=== PATIENT | male | born 1935 | race Caucasian/White ===

== ENCOUNTER 2020-05-16 15:45 | Inpatient (IN) | payer OTHER ==
[~2020-05-16] VITALS: Ht 185.4 cm; Wt 86.8 kg
--- NOTE | ~2020-05-16 | HC ---
[facility] [place] [address] CONSULTATION Name: TOBY LOYOLA Room #: 204-P [facility] IN M.R.#: [id number] Admission: 05/16/20 Attend Phys: Parveen Goldberg MD Discharge: Date of : 33 Report #: [id number] THIS REPORT FOR: cc: Parveen Goldberg MD, Neal A. MD Smithson, David G. MD ~ CC: Raymond Andersoncuselo Goldberg DATE OF SERVICE: 05/23/2020 HISTORY OF PRESENT ILLNESS: This patient is an 84-year-old white male who has a prior history of dementia, living in a memory group home, who was noted to have mental status changes. Did not recognize his daughter, which is a change. He had worsening shortness of breath, congestive heart failure, acute on chronic with sepsis, community-acquired pneumonia. He also had a large right pleural effusion and underwent thoracentesis on 05/17/2020 with 2200 mL fluid drained. He was noted to have a significant encephalopathy with worsening of his mental status, has been restless, trying to get out of bed, was in restraints with those being removed today at 11:00 a.m. He also has dysphagia with aspiration risk and daughter has been involved and the plan is to go ahead and let him eat with a pureed diet with nectar thickened liquids. We are seeing him in rehabilitation medicine consultation. PAST MEDICAL HISTORY: Gastric CA, coronary artery disease, status post stenting. He has had prior cardioversion. History of diabetes mellitus type 2. He does have the prior dementia. HABITS: No history of tobacco or alcohol abuse. MEDICATIONS: Please see the full medication listing. ALLERGIES: As listed CAMPHOR IODINE, PENICILLIN and PREDNISONE. SOCIAL HISTORY: Lives in a private small memory group home. There is apparently a nurse and an aid there and they served meals, family style. He had been ambulatory without gait aids. There is a closely involved daughter. REVIEW OF SYSTEMS: Did not offer any complaints of chest pain, shortness of breath or abdominal discomfort. He is very hard of hearing. He has hearing aids in. PHYSICAL EXAMINATION: GENERAL: An 84-year-old white male lying in bed. He is very hard of hearing. When I asked him how he was, he said he thought he was alright. When I asked him what place he was in, he did not respond to me. [facility] [address] [place] [address] CONSULTATION Name: TOBY LOYOLA Room #: 204-P [facility] IN ..#: [id number] Admission: 05/16/20 Attend Phys: Parveen Goldberg MD Discharge: Date of : 33 Report #: [id number] NEUROLOGIC: He was able to follow basic 1 step commands. Vitals appear to be stable. He was partially undressed and I assisted him as far as getting his hospital gown back in place. EXTREMITIES: He has functional range of motion of the upper extremities with some decreased at end range. Strength is probably a grade 4- to 3+. Lower extremities functional range of motion, strength is probably a grade 4-. ASSESSMENT: An 84-year-old white male with the following problem list: 1. Toxic metabolic encephalopathy. 2. Sepsis. 3. Congestive heart failure, acute on chronic, systolic. 4. Large right pleural effusion, status post thoracentesis. 5. Community-acquired pneumonia. 6. DNR status. 7. Prior history of dementia. 8. Aspiration with dysphagia. Plan is to let him eat a pureed diet with nectar thickened liquids. PLAN: The patient did have restraints in place, which were just removed late this morning. He needs to be off restraints for 24 hours before being considered for an acute in-hospital 5 North rehabilitation stay. He was noted to have therapy on 05/19/2020, but was too confused on 05/20/2020. We will need to have him be reevaluated by therapies and we will need to go from there. Thank you for asking us to assist in this patient's care. By: [id number] Redd Zuniga MD /nt
[~2020-05-16 15:45] MED LIST: ALLEGRA60 MG; ASPIRIN EC81 M1; CARDURA8 MG; COUMADIN 2 MG TA2 M1; DILTIAZEM ER180 M1; GLUCOPHAGE500 MG; LISINOPRIL10 MG; MECLIZINE 25 MG25 M1 PO; MUCINEX600 MG; OMEPRAZOLE20 MG; PROVENTIL HFA6.7 G1; SIMVASTATIN40 MG
[2020-05-16 15:46] VITALS: BP 110/54
[2020-05-16 16:26] LABS: CALCIUM 9.2 mg/dL (8.5-10.1); CREATININE 1.1 mg/dL (0.7-1.3); POTASSIUM 4.8 mmol/L (3.5-5.1)
[2020-05-16 16:31] LABS: ABSOLUTE NEUTROPHILS 15.4 thou/uL (1.4-8.2); BASOPHILS 0.1 % (0.0-2.0); EOSINOPHILS 0.1 % (0.0-3.0); HEMATOCRIT 23.2 % (42.0-52.0); HEMOGLOBIN 6.8 gm/dL (14.0-18.0); LYMPHOCYTES 2.4 % (24.0-44.0); MCH 21.2 pg (26.0-34.0); MCHC 29.1 g/dL (28.0-37.0); MCV 72.8 fL (80.0-100.0); MONOCYTES 4.5 % (1.0-8.0); PLATELET COUNT 255 thou/uL (150-400); POLYS 92.9 % (36.0-66.0); RBC 3.19 mil/uL (4.50-6.00); WBC 16.6 thou/uL (4.0-11.0)
[2020-05-16 16:35] LABS: TROPONIN-I 0.16 ng/mL (<0.06)
[2020-05-16 16:54] LABS: ANISOCYTOSIS 1+; HYPOCHROMASIA 1+; MICROCYTES 1+; POLYCHROMASIA OCCASIONAL
[2020-05-16 17:17] LABS: APTT 32.1 Seconds (24.5-32.8); INR 1.5; PROTIME 14.9 Seconds (9.3-11.4)
[2020-05-16 17:18] LABS: BE(vivo) 1.7 mmol/L (-2 to +3); PCO2 53.9 mmHg (35.0-45.0); PO2 88.2 mmHg (80.0-100.0); pH 7.333 (7.360-7.450)
[2020-05-16 22:01] VITALS: BP 134/74
--- NOTE | 2020-05-16 22:05 | NUR ---
REPORT CALLED FROM ER (ROGER GO). PATIENT TRANSFERED TO ICU VIA CART ON 4L NC, SALINE LOCKED, WITH BILATERAL SOFT WRIST RESTRAINTS ON. PATIENT TRANSFERED TO ICU BED, ATTACHED TO ICU MONITOR, AND ASSESSED PER ICU PROTOCOL. PT A&O x1. DAUGHTER (ADDI) CALLED AND UPDATED AND GIVEN PTS SECURITY CODE/ROOM NUMBER. DR. PERKINS PAGED TWICE AT 1894 AND [id number]. NO CALL BACK.
[2020-05-16 22:08] VITALS: BP 116/63
[2020-05-16 22:15] VITALS: BP 107/60
[2020-05-16 23:00] VITALS: BP 113/70
[2020-05-17] VITALS (38 sets, daily range): BP systolic 92–128; BP diastolic 52–82
[2020-05-17 01:13] LABS: HEMATOCRIT 21.2 % (42.0-52.0)
[2020-05-17 01:16] LABS: HEMOGLOBIN 6.2 gm/dL (14.0-18.0)
[2020-05-17 07:11] LABS: HEMOGLOBIN 7.1 gm/dL (14.0-18.0); MCH 21.9 pg (26.0-34.0); MCHC 29.5 g/dL (28.0-37.0); MCV 74.3 fL (80.0-100.0); RBC 3.23 mil/uL (4.50-6.00); WBC 14.7 thou/uL (4.0-11.0)
[2020-05-17 07:26] LABS: CALCIUM 8.7 mg/dL (8.5-10.1); CREATININE 1.1 mg/dL (0.7-1.3); POTASSIUM 4.5 mmol/L (3.5-5.1)
--- NOTE | 2020-05-17 07:38 | EKG ---
[facility] [place] [address] ELECTROCARDIOGRAM REPORT Name: TOBY LOYOLA Room #: 241-P ADM IN M.R.#: [id number] Admission: 05/16/20 Attend Phys: Parveen Goldberg MD Discharge: Date of : 33 Report #: [id number] THIS REPORT FOR: cc: Parveen Goldberg MD, Neal A. MD Santiago, Patrick MD [facility] ~ THIS REPORT FOR: //name// [facility] ED Test Date: 2020-05-16 Test Time: 16:54:31 Pat Name: TOBY LOYOLA Department: Room: 241 Gender: M Rejected Items Clerk: OBINNA : 1935 Requested By: Obed Bass Order Number: [id number] MD: Carlos Manuel Sweeney Measurements Intervals [place] Rate: 92 P: MO: QRS: 4 QRSD: 112 T: 86 QT: 374 QTc: 463 Interpretive Statements Atrial fibrillation Anteroseptal infarct, age indeterminate Compared to ECG 09/18/2011 10:28:42 Myocardial infarct finding now present Incomplete right bundle-branch block no longer present T-wave abnormality no longer present Electronically Signed On 05-17-2020 7:38:24 CDT by Carlos Manuel Sweeney [email or web address] <ELECTRONICALLY SIGNED> By: Carlos Manuel Sweeney MD, FAC 05/17/20 0738 1654 [id number] Carlos Manuel Sweeney MD, [facility] /EPI
--- NOTE | 2020-05-17 11:45 | NUR ---
chart review. cm visited with daughter kat via phone call. pt lives in memory senior living with total of 8 resident then have ob/gyn physician and nurse. dad up walking with out assist prior to hospital. lives at [facility], no o2 prior to hospital he does were depends at . he gets to go out back and work in garden if he wants. he has made friends there and will go back at dc from hospital. he might even have girlfriend. no steps he has to do. nurse passes out medication, they all eat meals together like families do. [facility], then see zhanna there per daughter jerald. will cont following as need for dc need.
[2020-05-17 12:24] LABS: HEMATOCRIT 24.6 % (42.0-52.0)
[2020-05-17 12:25] LABS: HEMOGLOBIN 7.2 gm/dL (14.0-18.0)
[2020-05-17 12:35] LABS: CLARITY SLIGHTLY CLOUDY; COLOR YELLOW; SOURCE RIGHT CHEST; TOTAL VOLUME 59 mL
[2020-05-17 12:54] LABS: BF NUCLEATED CELLS 209 /mm3; BF RBC 1043 /mm3
[2020-05-17 14:44] LABS: BF NEUTROPHILS 28 %
[2020-05-17 14:45] LABS: BF MACROPHAGE 26 %
[2020-05-17 16:49] LABS: SOURCE THORACENTESIS
--- NOTE | 2020-05-17 19:44 | NUR ---
PATIENT MOVED TO ROOM 248 AT 1200. PATIENT GOT THORACENTSIS AT 1130. 2.2L OF FLUID OFF. DPOA SEANSA DAUGHTER VISITED PATIENT. 80MG LASIX GIVEN FOR LOW URINE OUTPUT. CROWELL CATHETER REPLACED DUE TO LEAKAGE AROUND CATHETER AT 1400. PATIENT PRODUCING URINE. 2300 OUT THIS SHIFT. PROGRESSING TOWARDS PLAN OF CARE.
--- NOTE | 2020-05-17 21:29 | NUR ---
Nurse talked with Dr. Garvey in regards to patient heparin order and lower hemoglobin with having been transfused. No evidence of bleeding noted, patient had a thoracentesis today. Per physician, ok to give heparin as scheduled and ordered.
[2020-05-18] VITALS (26 sets, daily range): BP systolic 82–138; BP diastolic 48–83
[2020-05-18 03:26] LABS: URINE BILIRUBIN NEGATIVE (Negative); URINE BLOOD 3+ (Negative); URINE CLARITY SL CLOUDY; URINE COLOR YELLOW; URINE GLUCOSE-RANDOM* NEGATIVE (Negative); URINE KETONES TRACE (Negative); URINE NITRITE-REFLEX NEGATIVE (Negative); URINE PROTEIN (DIPSTICK) 1+ (Negative); URINE SPECIFIC GRAVITY >= 1.030 (1.005-1.035); URINE UROBILINOGEN 0.2 E.U./dl (0.2-1.0)
[2020-05-18 03:33] LABS: URINE LEUKOCYTES-REFLEX 1+ (Negative)
[2020-05-18 03:48] LABS: CELLULAR CASTS 0-3 Few /LPF (None Seen); CRYSTALS None Seen /LPF (None Seen); FINE GRANULAR CASTS 0-3 Few /LPF (None Seen); HYALINE CASTS 0-3 Few /LPF (None Seen); MUCUS 0-3 Light strn/LPF (None Seen); SQUAMOUS 0-3 Few /LPF (0-3); WBC CLUMPS Rare (None Seen)
[2020-05-18 06:05] LABS: HEMOGLOBIN 7.1 gm/dL (14.0-18.0); MCH 21.8 pg (26.0-34.0); MCHC 29.7 g/dL (28.0-37.0); MCV 73.3 fL (80.0-100.0); RBC 3.27 mil/uL (4.50-6.00); RDW 17.7 % (10.5-14.5); WBC 11.3 thou/uL (4.0-11.0)
--- NOTE | 2020-05-18 06:23 | NUR ---
Patient slept throughout the night. He is progressing towards plan of care as evidenced by he is less impulsive, responds more appropriately, decreasing oxygen needs, vital signs with map >65mmhg.
[2020-05-18 06:30] LABS: CALCIUM 8.2 mg/dL (8.5-10.1); CREATININE 1.1 mg/dL (0.7-1.3); POTASSIUM 3.6 mmol/L (3.5-5.1)
--- NOTE | 2020-05-18 08:54 | EKG ---
[facility] [place] [address] ELECTROCARDIOGRAM REPORT Name: TOBY LOYOLA Room #: 248-P ADM IN M.R.#: [id number] Admission: 05/16/20 Attend Phys: Parveen Goldberg MD Discharge: Date of : 33 Report #: [id number] THIS REPORT FOR: cc: Parveen Goldberg MD, Neal A. MD Lundgren,Dell Suarez MD [facility] ~ THIS REPORT FOR: //name// [facility] Test Date: 2020-05-18 Test Time: 07:01:23 Pat Name: TOBY LOYOLA Department: Room: 248 P Gender: M Analytical Tech: SIDDHARTHA : 1935 Requested By: Raymond Coles Order Number: [id number] MD: Dell Vasquez Measurements Intervals [place] Rate: 105 P: CA: QRS: 12 QRSD: 100 T: 86 QT: 348 QTc: 461 Interpretive Statements Atrial fibrillation Anteroseptal infarct, age indeterminate Baseline wander in lead(s) V4 Compared to ECG 05/16/2020 16:54:31 No significant changes Electronically Signed On 05-18-2020 8:54:07 CDT by Dell Vasquez [email or web address] <ELECTRONICALLY SIGNED> By: Dell Vasquez MD, [facility] 05/18/20 0854 0 Dell Vasquez MD, FAC /EPI
--- NOTE | 2020-05-18 12:07 | NUR ---
SPOKE WITH PATIENT'S DAUGHTER (ADDI PEDROZA) RE CODE STATUS. SHE STATED THAT PER HIS MEDICAL RECORDS, HE IS A DNR. UPDATED STATUS ON OCT. DAUGHTER AT THE BEDSIDE VISITING, UPDATED ON STATUS AND POC.
--- NOTE | 2020-05-18 16:06 | PATH ---
[facility] [address] [place] [address] PATHOLOGY RPT PROCEDURE Name: TOBY LOYOLA Room #: 248-P ADM IN M.R.#: [id number] Admission: 05/16/20 Date of : 31 Discharge: Report #: [id number] Path Case #: [id number] Note [facility] Accession Number: [id number] TESTS RESULT FLAG UNITS REF RANGE LAB Clinician Provided Cytology Information No. of containers..01 Other (Miscellaneous) Source: 01 PLEURAL FLUID DIAGNOSIS: 02 PLEURAL FLUID NEGATIVE FOR MALIGNANT EPITHELIAL CELLS. REACTIVE MESOTHELIAL CELLS ARE PRESENT. THIS INTERPRETATION INCLUDES EVALUATION OF A CELL BLOCK. MILD CHRONIC INFLAMMATION. Pathologist ICD10: 02 J18.9 Signed out by: 02 Patricia Joaquin MD, Pathologist NPI- [id number] Performed by: 01 Audrey Patton, [employer] Fabricator [employer]sembler ([facility]) Gross description: 01 20ML, CLEAR YELLOW, 1 TP 1 CB /LCS 05/17/2020 1638 Local FLAG LEGEND: L-Low Normal,H-High Normal,LL-Alert Low,HH-Alert High <-Panic Low,>-Panic High,A-Abnormal,AA-Critical Abnormal Performed at: [address] [place] [address] Keagan Paul MD, [address] [address] Patricia Joaquin MD, Specimen Comment: A courtesy copy of this report has been sent to [phone] Specimen Comment: [phone], Specimen Comment: Report sent to ,DR PERKINS / DR COLÓN Performed at: [address], [place], [place] [address] MD Keagan Paul MD Phone: [phone]
--- NOTE | 2020-05-18 17:26 | NUR ---
PT. ARRIVED ON CCU UNIT AT THIS TIME. OXYGEN TRANSFERRED AND PLACED ON NASAL CANNULA AT OUR BEDSIDE. VERY CALM, SLEEP, FLAT AFFECT. VERY [place], HAVE TO PRONOUNCE QUESTIONS TO HIM IN HIS LEFT EAR, CLOSELY. DAUGHTER REPORTED HE HAS TO HAVE IN AT LEAST ONE HEARING AID AT A TIME OR HER IS 100% DEAF BASICALLY. PLACED ON LIVERY CAR DRIVER SHWOING HE IS IN AFIB CURENTLY WITH A CONTROLLED RATE, NO ECTOPY OBSERVED. HE IS ALLOWED THICKENED LIQUIDS TONIGHT AND SPEECH EVALAUTION WILL REASSESS HIM TOMORROW IN THE MORNING FOR SWALLOWING ABILITIES OVERALL AGAIN. THEREFORE ON ACCUCHECKS Q6 HOURS STILL NOT TAKING MUCH FOOD IN YET OR CALORIES. NO SIGN'S OF AGITATION OR PULLING AT ANY OF HIS LINES AT PRESENT SO NEED FOR RESTRAINTS PRESENTLY. WILL CONTINUE TO MONITOR AND HE IS CLOSE TO NURSING STATION FOR SAFETY WELL.
[2020-05-18 19:07] LABS: BODY FLUID ALBUMIN 1.1 g/dL (Not Estab.); BODY FLUID AMYLASE 10 U/L (()); BODY FLUID GLUCOSE 206 mg/dL (()); BODY FLUID LDH 80 IU/L (()); BODY FLUID PROTEIN 1.7 g/dL (())
--- NOTE | 2020-05-18 21:12 | NUR ---
PATIENT IS CONFUSED AND IMPULSIVE. DESPITE NURSING INTERVENTIONS PATIENT HAS REMOVED MULTIPLE IV'S WELL OXYGEN MANY TIMES. ORDERS RECEIVED FOR MEDICATION WELL SOFT RESTRAINT MITTENS WHICH WERE PLACED WITHOUT INCIDENT. CALL PLACED TO DAUGHTER AND DPOA ALERTING HER TO PATIENTS TREATMENT.
--- NOTE | 2020-05-19 04:29 | NUR ---
PATIENT IS SLOWLY PROGRESSING IN HIS CARE PLAN. VITAL SIGNS STABLE WITH PATIENT HAVING NO COMPLAINTS OF PAIN OR NAUSEA. PATIENT IS ORIENTED TO SELF, CONFUSED, AND FREQUENTLY IMPULSIVE. MITTENS PROVIDED FOR PATIENT DUE TO INTERFERENCE WITH MEDICAL EQUIPMENT. BREATHING STABLE ON LOW LEVEL OXYGEN EVIDENCED BY ASSESSMENTS AND SPOT OXYGENATION CHECKS. AROUND 600 CC URINARY OUTPUT THROUGH CROWELL CATHETER. SWALLOW PRECAUTIONS FOLLOWED. CONTINUE PLAN OF CARE.
[2020-05-19 04:55] VITALS: BP 119/64
[2020-05-19 06:36] LABS: CALCIUM 7.9 mg/dL (8.5-10.1)
[2020-05-19 07:40] VITALS: BP 114/69
[2020-05-19 11:30] VITALS: BP 113/65
[2020-05-19 15:35] VITALS: BP 98/55
--- NOTE | 2020-05-19 18:03 | NUR ---
ASSUMED PATIENT CARE AT 0700. ALERT TO SELF. VERY HARD HEARING. AMBULATED IN ARAYA WAY WITH STANDBY ASSISTED. OFF RESTRAINT AT 0800. TITRATED TO RA 02 SAT 92%. ASSISTED PATIENT WITH MEALS. SLOWLY TOWARDS POC GOALS.
[2020-05-19 20:27] VITALS: BP 121/78
[2020-05-20] VITALS (7 sets, daily range): BP systolic 105–151; BP diastolic 57–93
--- NOTE | 2020-05-20 03:34 | NUR ---
assumed pt care at 1900, pt is awake, alert to self and very [place], pt is impulsive and disconnected multiple iv lines and his flores, dr blas contacted, orders received for mitted restrains and medication, order received for soft bilateral restrains as pt is able to remove mittens and pull ivs again, afib on the monitor, assessments as charted, vss, laying in bed, restrains on, will continue to monitor
[2020-05-20 08:18] LABS: HEMATOCRIT 27.6 % (42.0-52.0); HEMOGLOBIN 8.2 gm/dL (14.0-18.0); MCH 21.7 pg (26.0-34.0); MCHC 29.8 g/dL (28.0-37.0); RBC 3.78 mil/uL (4.50-6.00); RDW 18.6 % (10.5-14.5); WBC 9.8 thou/uL (4.0-11.0)
[2020-05-20 08:31] LABS: CALCIUM 8.9 mg/dL (8.5-10.1); CREATININE 0.7 mg/dL (0.7-1.3)
[2020-05-20 08:38] LABS: POTASSIUM 2.7 mmol/L (3.5-5.1)
--- NOTE | 2020-05-20 15:26 | NUR ---
Pt NPO this am due to mental status. ST did feeding trial with modified diet at lunch and dtr was present. Continuing iv lasix due to CHF. Pt in restraints due to pulling at flores and IV. Attempted to update the DON at the [facility] (memory care), Jessy Shetty [phone]. Dtr would like the pt to return directly there as it is a private small prison. Their DON will need updated and to approve his readmission. The [facility] staff report that family can transport the resident at dc or they can arrange for that. They do have [facility] coming in for other residents and he can have HH RN and therapies including ST upon his return if ordered by the attending. Message left for the DON. Pt will likely be ready for dc early next week pending his progress. Will follow.
--- NOTE | 2020-05-20 19:40 | NUR ---
PT CARE ASSUMED AT 0700. ASSESSMENT CHARTED. MEDICATION CHARTED. ST EVALUATED PATIENT SWALLOW THIS MORNING; MADE PT NPO UNTIL SECOND STUDY AT LUNCH; AFTER 2ND STUDY PT WENT BACK ON PREVIOUS DIET. PT REMAINS IN RESTRAINTS; DESPITE THE RESTRAINTS PT MANAGED TO PULL 3RD IV; NEW IV LFA. CROWELL. ACHS.
[2020-05-21 04:13] LABS: CALCIUM 8.7 mg/dL (8.5-10.1); CREATININE 0.9 mg/dL (0.7-1.3); POTASSIUM 3.4 mmol/L (3.5-5.1)
[2020-05-21 04:45] VITALS: BP 132/95; BP 146/88
--- NOTE | 2020-05-21 05:53 | NUR ---
assumed pt care at the change of shift, pt is awake, alert to self, implulsive at times, remains on restrains due to disconnecting iv and flores, remains afib on the monitor, hr upto 120s when pt is up and agitated, otherwise stable, meds given as per mar, no acute distress noted, progressing slowly towards plan of care
[2020-05-21 07:35] VITALS: BP 117/82
[2020-05-21 16:20] VITALS: BP 106/65
--- NOTE | 2020-05-21 16:38 | NUR ---
ASSESSMENT CHARTED - MEDS PER MAR - PT HAS REMIANED CONFUSED AND AGGITATED FOR A GOOD PORTION OF THE DAY - ABLE TO SCOOT DOWN IN BED AND PULL OUT IV AND TAKE OFF GOWN. IV REPLACED IN L FOREARM. INCONTINENT OF STOOL - CROWELL CATH WITH GOOD URING OUTPUT. PT ON PURREE DIET AND NECTAR THICK LIQUIDS - HAS PERIODS OF COUGHING AND THROAT CLEARING WHEN BEING FEED. ACCUCHECKS CHARTED COCERED PER SSI. DAUGHTER INTO VISIT THIS SHIFT. PT HAS REMINED RESTRAINED THROUGHOUT THE DAY.
[2020-05-21 20:10] VITALS: BP 119/51
[2020-05-22 03:05] LABS: HBsAG-EMPLOYEE EXPOSURE Negative (Negative); HCV AB-EMPLOYEE EXPOSURE <0.1 (0.0-0.9)
[2020-05-22 04:00] VITALS: BP 117/68
--- NOTE | 2020-05-22 04:41 | NUR ---
assumed pt care at the change of shift, pt is awake, alert to self, less impulsive tonight, bilateral soft restrains on due to pt disconnecting multiple ivs and flores catheter, pt able to eat 2 apple sauce and 1 puddding, insulin was given as per oct, sr on the monitor, all other meds given as per oct, 2 loose stools noted, vss, no acute distress noted, will continue to monitor
[2020-05-22 07:35] VITALS: BP 126/60
[2020-05-22 09:41] LABS: HEMATOCRIT 30.1 % (42.0-52.0); MCH 21.9 pg (26.0-34.0); MCHC 29.8 g/dL (28.0-37.0); MCV 73.3 fL (80.0-100.0); RBC 4.1 mil/uL (4.50-6.00); RDW 18.8 % (10.5-14.5); WBC 22.3 thou/uL (4.0-11.0)
[2020-05-22 09:49] LABS: CALCIUM 8.7 mg/dL (8.5-10.1); CREATININE 0.8 mg/dL (0.7-1.3)
[2020-05-22 09:52] LABS: POTASSIUM 2.9 mmol/L (3.5-5.1)
[2020-05-22 11:05] VITALS: BP 104/52
[2020-05-22 16:00] VITALS: BP 118/72
--- NOTE | 2020-05-22 17:03 | NUR ---
ASESSMENT CHARTED - MEDS PER MAR - PT WITH LOW K+ GIVEN 20 MEQ IVPB, ORAL DOSES ORDERED. ACCUCHECKS COVERED PER SSI. MATILDA PURREE DIET AND NECTAR THICK LIQUIDS - PT DOES HAVE COUGHING AND THRAOT CLEARING WITH ORAL INTAKE. SATURATION CHECKED IN ROOM AIR PT 94% O2 LEFT OFF. PT AMBULATED TO THE BATHROOM AND IS UP IN THE CHAIR AT THE PRESENT TIME. DAUGHTER AT THE BEDSIDE. PT RESTLESS AT TIMES WHEN IN BED - ATTEMPTING TO PULL AT LINES/ CROWELL - REMAINS RESTRAINED WHILE IN BED. NO CO'S AT THE PRESENT TIME.
[2020-05-22 20:33] VITALS: BP 125/69
[2020-05-23 05:19] VITALS: BP 130/71
--- NOTE | 2020-05-23 05:37 | NUR ---
ASSUME CARE 1900. PT/VITALS STABLE. NO PAIN NOTED. PT STILL CONFUSED BUT PLEASANT. NO AGITATION NOTED. ASSESSMENT CHARTED. PROGRESSING WELL WITH POC. PT IS CLINICALLY STABLE. PLAN IS TO CONTINUE TO MONITOR PT AND POSSIBLE DISCHARGE WITHIN A FEW DAYS BACK TO FACILITY. WILL CONTINUE TO FOLLOW WITH POC
[2020-05-23] MEDS ORDERED: METOPROLOL TART25 MG PO (07:28)
[2020-05-23] MEDS ORDERED: POTASSIUM CHLO20 MEQ PO (07:37)
[2020-05-23] MEDS ORDERED: CARDIZEM60 MG PO (07:37)
[2020-05-23] MEDS ORDERED: DEMADEX20 MG PO (07:37)
[2020-05-23 08:09] VITALS: BP 113/58
[2020-05-23 08:37] LABS: CALCIUM 8.9 mg/dL (8.5-10.1); CREATININE 0.9 mg/dL (0.7-1.3); POTASSIUM 3.1 mmol/L (3.5-5.1)
--- NOTE | 2020-05-23 09:56 | 2DMMODE ---
[facility] [place] [address] 2 D/M-MODE ECHOCARDIOGRAM Name: TOBY LOYOLA Room #: 204-P ADM IN M.R.#: [id number] Admission: 05/16/20 Attend Phys: Parveen Goldberg MD Discharge: Date of : 33 Report #: [id number] THIS REPORT FOR: cc: Parveen Goldberg MD, Neal A. MD Santiago, Patrick MD [facility],Parveen CASTAÑEDA ~ Sex/Age : F/72Y Height/Weight : 182.9cm/79.4kg Patient Name : JOSEFA ALMANZAR Study Date : 2020-05-17 BSA : 2.01? Requesting Name : ECHO COMPLETE Date of : 1948-01-28 Request Doctor : CARLOS MANUEL SWEENEY Department : CARD --< Approved Report > Study performed: 05/17/2020 14:15:25 EXAM: Comprehensive 2D, Doppler, and color-flow Echocardiogram Patient Location: ER Status: routine BSA: 2.01 HR: 130 bpm BP: 132/99 mmHg Rhythm: Atrial Fibrillation Indications Afib, short of breath, elevated troponin. HTN 2D Dimensions RVDd: 41.37 mm IVSd: 12.51 (7~11mm) LVOT Diam: 19.89 (18~24mm) LVDd: 41.51 mm PWd: 12.21 (7~11mm) Ascending Ao: 33.65 (22~36mm) LVDs: 29.31 (25~40mm) Aortic Root: 31.38 mm Volumes Left Atrial Volume (Systole) Single Plane 4CH: 114.45 mL Single Plane 2CH: 80.98 mL LA ESV Index: 56.00 mL/m2 [facility] [place] [address] 2 D/M-MODE ECHOCARDIOGRAM Name: TOBY LOYOLA CELESTE Room #: 204-P [facility] IN M.R.#: [id number] Admission: 05/16/20 Attend Phys: Parveen Goldberg, Discharge: Date of : 33 Report #: [id number] Aortic Valve AoV Peak Junior.: 1.07 m/s AO Peak Gr.: 4.58 mmHg LVOT Max P.68 mmHg LVOT Max V: 0.82 m/s FLORIDALMA Vmax: 2.38 cm2 Mitral Valve MV Decel. Time: 95.74 ms MV E Max Junior.: 1.39 m/s Pulmonary Valve PV Peak Junior.: 0.90 m/s PV Peak Gr.: 3.21 mmHg Tricuspid Valve TR Peak Junior.: 2.86 m/s RAP Estimate: 15.00 mmHg TR Peak Gr.: 33.00 mmHg PA Pressure: 48.00 mmHg Left Ventricle The left ventricle is normal size. There is normal LV segmental wall motion. Mild concentric left ventricular hypertrophy. Left ventricular systolic function is normal. LVEF is 55-60%. This study is not technically sufficient to allow evaluation of the LV diastolic function due to atrial fibrillation. Right Ventricle The right ventricle is normal size. The right ventricular systolic function is normal. Atria Left atrium is severely dilated. Right atrium is moderately dilated. Aortic Valve The aortic valve is normal in structure. No aortic regurgitation is present. There is no aortic valvular stenosis. Mitral Valve The mitral valve is normal in structure. Moderate mitral regurgitation. Tricuspid Valve The tricuspid valve is normal in structure. Mild tricuspid regurgitation. Estimated PAP is 45mmHg. Pulmonic Valve The pulmonary valve is normal in structure. Trace pulmonic regurgitation. [employer] [facility] [address] [address] 2 D/M-MODE ECHOCARDIOGRAM Name: TOBY LOYOLA CELESTE Room #: 204-P [facility] IN M.R.#: [id number] Admission: 05/16/20 Attend Phys: Parveen Goldberg, Discharge: Date of : 33 Report #: [id number] The aortic root is normal in size. The ascending aorta is normal in size. IVC is dilated and collapses <50% with inspiration. Pericardium There is no pericardial effusion. <Conclusion> Normal left atrial size, mild concentric hypertrophy and preserved ejection fraction of 60% No obvious segmental wall motion abnormality Study performed in Atrial fibrillation Moderate biatrial enlargement Mild tricuspid valve insufficiency Moderate pulmonary hypertension PA pressure systolic estimated at 45 mmHg Moderate and posteriorly directed mitral valve insufficiency Electronically Approved : 05/23/2020 09:26:14 By: [id number] Carlos Manuel Sweeney MD, FACC /JW
--- NOTE | 2020-05-23 11:23 | NUR ---
PT HAS NOT ATTEMPTED GRABBING AT MEDICAL DEVICES THIS SHIFT. DAUGHTER IN ROOM WITH PT. RESTRANTS REMOVED AT 1100. WILL NOTIFIY PHYSICIAN OF REMOVAL. PLAN IS FOR PT TO DC TODAY.
[2020-05-23 12:57] VITALS: BP 123/65
--- NOTE | 2020-05-23 16:14 | NUR ---
Tenative plan for dc today. Sp with Lynn at [facility] who reports she sp with dtr. Dtr reported to home he needs assistance to bathroom. This is not his baseline. Patient Ambulated with no assistive device. Patient seen by PT/OT on 05/19. SP with dtr regarding post acute care. Dtr refuses skilled care. She reports her mother transferred from [facility] to [facility] for skilled rehab and it was a terrible experience. She rec little therapy at facility and at facility. She is agreeable to 5[facility] eval. [facility] evaled and need patient to be restraint free 24 hours to be accepted.
[2020-05-23 16:50] VITALS: BP 149/117
--- NOTE | 2020-05-23 18:19 | NUR ---
ASSUMED CARE PT SHIFT CHANGE. ASSESSMENT CHARTED.MEDS GIVEN PER OCT. PT DROWSY THIS SHIFT. UNABLE TO STATE NAME, ANSWER ORIENTATION QUESTIONS. PT DID ANSWER TO SOME YES/NO QUESTIONS. UP TO TOILET X2 ASSIST. PT ATE MEALS FAIR TODAY, DID NOT WANT LUNCH. SEEN BY OT, PHYS THERAPY TO SEE TOMORROW. POSSIBLE DC TO REHAB. DAUGHTER AT BEDSIDE THROUGHOUT SHIFT. WILL CONT TO MONITOR AND FOLLOW POC. WILL PASS ON REPORT TO NOC RN.
[2020-05-23 20:00] VITALS: BP 111/56
--- NOTE | 2020-05-24 02:03 | NUR ---
ASSESSMENT: PT REMAIN ALERT AND ORIENT TIMES TWO. AT THE BEGINNING OF THE SHIFT PT WAS COOPERATIVE AND FOLLOWED SIMPLE COMMANDS FOR THE MOST PART. AT APPROXIMATELY 0100 PT BECAME COMBATIVE, NON-COMPLIANT AND CONTINUOUSLY TAKING OFF TELE MONITOR AND ID BADGES. WHEN ON MONITOR PT WAS AFIB WITH RATES CONTROLLED. THIS RN ATTEMPTED TO GIVE PT PO HALDOL FOR AGITATION IN WHICH PT SPIT THE ENTIRE SPOON FULL OF MEDICINE OUT. SECURITY WAS CALLED BECAUSE PT WAS KICKING AND WRESTLING WITH THIS RN AND THE ELECTROCARDIOGRAPH OPERATOR. AT THAT TIME PT WAS BEING IMPULSIVE AND WAS DETERMINED THAT HE WAS GOING TO GET OOB AND HEAD TOWARDS THE BR WITHOUT GB NOR ASSISTANCE. DR. PERKINS WAS NOTIFIED OF PT'S BEHAVIOR AND ORDERS WERE GIVEN TO DC TELE MONITOR AND TO GIVE HALDOL IM. SECURITY REMAINED AT THE BEDSIDE UNTIL ORDERS WERE INITIATED. PT IS NOW ASLEEP AND QUIET. VSS, AFEBRILE. SLOW PROGRESS TOWARDS DC GOALS. WILL CONTINUE TO MONITOR.
[2020-05-24 07:35] VITALS: BP 119/55
--- NOTE | 2020-05-24 14:16 | NUR ---
spoke with [facility] CONVICT GUARD, evaled and accepted to 5[facility]. plan admit in am updated Dr Goldberg and [facility].
--- NOTE | 2020-05-24 18:30 | NUR ---
ASSUMED CARE OF PT AT SHIFT CHANGE. ASSESSMENTS CHARTED. MEDS GIVEN PER OCT. PT ALERT TO SELF. VERY HARD OF HEARING. NO C/O PAIN. IMPULSIVE, DOES NOT USE THE CALL LIGHT. HAD SEVERAL BOUTS OF DIARRHEA, TREATED WITH PO MEDS. PULLED OUT IV AND FLUSHED DOWN TOILET. WALKED WITH PT AND SEVERAL TIMES WITH DAUGHTER AROUND UNIT USING WALKER. PLAN TO DC TO 5N TOMORROW. WILL CONTINUE TO MONITOR AND FOLLOW POC.
[2020-05-24 20:34] VITALS: BP 98/63
--- NOTE | 2020-05-25 04:20 | NUR ---
CARE ASSUMED AT 1900. PT CONFUSED, UNABLE TO MAKE NEEDS KNOWN. LESS BEHAVIORS OVERNIGHT. AGITATED X 1 , TRYING TO HIT STAFF WITH WALKER OTHERWISE AND OXYGEN TANK. STILL UNSTEADY WITH GAIT BUT STAND BY ASSIST. NO APPARENT PAIN. WILL CONTINUE WITH POC.
[2020-05-25 07:38] VITALS: BP 110/74
--- NOTE | 2020-05-25 11:58 | NUR ---
PT BP DROPPED TO 83/40 AT 1130. PT HAD BEEN WALKING IN THE HALLS EARLIER IN THE MORNING. HR WAS 76, O2 98, RR 18. NOTIFIED DR. PERKINS, WHO ORDERED A BOLUS OF NORMAL SALINE. WILL CONTINUE TO MONITOR.
--- NOTE | 2020-05-25 14:34 | NUR ---
ASSUMED CARE OF PT AT SHIFT CHANGE. ASSESSMENTS CHARTED. MEDS GIVEN PER OCT. PT ALERT TO SELF, IMPULSIVE, PULLS OUT IVS IF NOT SUPERVISED. DOES NOT USE THE CALL LIGHT APPROPRIATELY. IS MOSTLY INCONTINENT. DAUGHTER AT BEDSIDE ASSISTING WITH CARES. BP STABLIZED AFTER 500ML BOLUS. DR. PERKINS OK WITH TRANSFER TO REHAB. DISCHARGE ORDERS COMPLETE. PT TAKEN TO 503 VIA WHEELCHAIR.
== END 2020-05-25 13:52 | DRG 871 ==
LOC: ER 15:45 → ICU 18:09 → EROBS 18:09 → ICU 21:49 → 2N 05-18 17:29
PROVIDERS: Internal Medicine Pulmonary Disease; Nurse Practitioner; Nurse Practitioner Adult Health; Specialist; ADMIT Family Medicine; ATTEND Family Medicine
PROC: 0W993ZZ Drainage of Right Pleural Cavity, Percutaneous Approach (ICD-10-PCS; principal; 2020-05-17)
PROC: 30233N1 Transfusion of Nonautologous Red Blood Cells into Peripheral Vein, Percutaneous Approach (ICD-10-PCS; principal; 2020-05-17)
DX: A41.9 Sepsis, unspecified organism (principal); J18.9 Pneumonia, unspecified organism; G92 Toxic encephalopathy; I50.43 Acute on chronic combined systolic (congestive) and diastolic (congestive) heart failure; J96.01 Acute respiratory failure with hypoxia; J91.8 Pleural effusion in other conditions classified elsewhere; I48.21 Permanent atrial fibrillation; N17.9 Acute kidney failure, unspecified; I13.0 Hypertensive heart and chronic kidney disease with heart failure and stage 1 through stage 4 chronic kidney disease, or unspecified chronic kidney disease; Z20.828 Contact with and (suspected) exposure to other viral communicable diseases; R65.20 Severe sepsis without septic shock; I25.10 Atherosclerotic heart disease of native coronary artery without angina pectoris; Z66 Do not resuscitate; R13.10 Dysphagia, unspecified; F03.90 Unspecified dementia, unspecified severity, without behavioral disturbance, psychotic disturbance, mood disturbance, and anxiety; D50.9 Iron deficiency anemia, unspecified; N18.9 Chronic kidney disease, unspecified; I71.4 Abdominal aortic aneurysm, without rupture; E87.6 Hypokalemia; E11.22 Type 2 diabetes mellitus with diabetic chronic kidney disease; Z95.5 Presence of coronary angioplasty implant and graft; Z88.0 Allergy status to penicillin; Z88.8 Allergy status to other drugs, medicaments and biological substances; Z91.041 Radiographic dye allergy status; Z85.028 Personal history of other malignant neoplasm of stomach; Z82.49 Family history of ischemic heart disease and other diseases of the circulatory system; Z79.899 Other long term (current) drug therapy
CPT/HCPCS: 10078; 10081

== ENCOUNTER 2020-05-24 15:53 | Inpatient (IN) | payer OTHER ==
[~2020-05-24] VITALS: Ht 188 cm; Wt 75.4 kg
--- NOTE | ~2020-05-24 | PLAN ---
[facility] [place] [address] REHAB UNIT PLAN OF CARE Name: TOBY LOYOLA Room #: 503-P ADM IN M.R.#: [id number] Admission: 05/25/20 Attend Phys: Redd Zuniga MD Discharge: Date of : 33 Report #: [id number] THIS REPORT FOR: //name// CC: Redd Goldberg DATE OF SERVICE: 05/27/2020 PROGRESS NOTE/OVERALL PLAN OF CARE SUBJECTIVE: The patient is seen in followup on 05/27/2020. He has been significantly confused, had a sitter at the bedside. He was placed on IV fluids with his marked hypernatremia. Appreciate Nephrology assistance. This was thought to be due to his severe free water deficit. Sodium was noted to be 155 yesterday. He was noted to be doing better. He follows basic commands for me, was able to respond appropriately to manual muscle testing. He is very hard of hearing, but that is his baseline. Functionally, he has been mod assist with sit to stand and did ambulate up to 75 feet contact guard with a front-wheeled walker. In occupational therapy, he has been standby assist with shoes, min assist for upper body dressing. In speech therapy, he is being followed regarding swallowing and has been on a pureed with nectar thickened liquids. ASSESSMENT: 1. Toxic metabolic encephalopathy. 2. Hypernatremia, acute renal insufficiency with dehydration. 3. Sepsis with community-acquired pneumonia. 4. Acute exacerbation of systolic congestive heart failure. 5. Large right pleural effusion, status post thoracentesis on 05/17/2020. 6. Aspiration/dysphagia. 7. Dementia. 8. Medical complexity with generalized debilitation. 9. Very hard of hearing. PLAN: The overall plan of care includes the followin. Estimated length of stay is probably 7-14 days pending progress. 2. Medical prognosis is reasonably good. 3. Anticipated interventions includes the interdisciplinary acute inpatient rehabilitation program. He also has close involvement with the medical team as well as Nephrology and Psychiatry with his significant comorbidities. 4. Anticipated functional outcomes would be for the patient to further clear cognitively with his toxic metabolic encephalopathy as well as to improve functionally to try to get back to the baseline. 5. Discharge destination would be back to his assisted living home setting, which is really a memory nursing home setting where he had been premorbidly able to care for his basic needs, was ambulatory without gait aids. 6. Expected therapy by discipline includes PT, OT and speech 1 [place] [address] REHAB UNIT PLAN OF CARE Name: TOBY LOYOLA Room #: 503-P [facility] IN M.R.#: [id number] Admission: 05/25/20 Attend Phys: Redd Zuniga MD Discharge: Date of : 33 Report #: [id number] each five days a week throughout the duration of the acute inpatient rehabilitation program. The patient does have a reasonable prognosis for significant practical improvement within a reasonable period of time. Given his complex medical condition and risk of further medical complications, rehabilitation services cannot be safely provided at a lower level of care such as a longterm facility. By: [id number] Redd Zuniga MD /nt
--- NOTE | ~2020-05-24 | HC ---
[facility] [place] [address] CONSULTATION Name: TOBY LOYOLA Room #: 503-P ADM IN M.R.#: [id number] Admission: 05/25/20 Attend Phys: Redd Zuniga MD Discharge: Date of : 33 Report #: [id number] THIS REPORT FOR: cc: Parveen Goldberg MD, Neal A. MD Al-Absi,Rosi Palmer MD ~ CC: Redd Goldberg REASON FOR CONSULTATION: Hypernatremia. REASON FOR HOSPITALIZATIONS: Increasing shortness of breath. HISTORY OF PRESENT ILLNESS: This is obtained from the medical chart. The patient is confused and not able to provide me with any details. He is an 84-year-old who was admitted initially on 05/17 to the acute care facility with shortness of breath. He resides in a memory care unit. The memory care unit was concerned about his increasing shortness of breath and sent the patient to our facility for further evaluation and management. The patient carries a past medical history of atrial fibrillation, abdominal aortic aneurysm, coronary artery disease, diabetes mellitus, carotid artery disease. He had a large right pleural effusion with what seems to be pneumonitis. Thoracentesis was done. The patient's condition stabilized in the acute care facility and he was then moved to the rehab facility for further evaluation and management. PAST MEDICAL HISTORY: Obtained from the medical chart: 1. Gastric carcinoma post-resection 7 years ago. 2. Coronary artery disease. 3. Atrial fibrillation. 4. Aortic aneurysm. 5. Dementia. ALLERGIES: IODINE AND PENICILLIN. FAMILY HISTORY: Unable to obtain given the patient's current mental status. SOCIAL HISTORY: He resides in a memory unit. No other details are available given his mental status. REVIEW OF SYSTEMS: Unobtainable given the patient's current mental status. MEDICATIONS: Includes the following from the nursing facility; 1. Warfarin. 2. Metoprolol. 3. Diltiazem. 4. Lisinopril. 5. Torsemide for unclear reasons. [facility] [address] [place] [address] CONSULTATION Name: TOBY LOYOLA CELESTE Room #: 503-P [facility] IN ..#: [id number] Admission: 05/25/20 Attend Phys: Redd Zuniga MD Discharge: Date of : 33 Report #: [id number] PHYSICAL EXAMINATION: GENERAL: The patient is confused. He has very dry mucous membranes. VITAL SIGNS: Blood pressure is 108/73, temperature is 36.7, pulse rate is 110. HEAD AND NECK: No jugular venous distention. CHEST: There are no crackles. CARDIOVASCULAR: No rub detected. ABDOMEN: Soft. LOWER EXTREMITIES: There is no edema. LABORATORY VALUES: From today revealed a sodium of 155, potassium of 3.1, BUN of 39, creatinine of 1.2. ASSESSMENT/IMPRESSION/PLAN: 1. Hypernatremia due to severe free water deficit. 2. Hypokalemia. 3. Initiate the patient on appropriate IV fluid including D5W to rectify his free water deficit. 4. Avoid further diuresis. 5. Replace potassium. 6. We will continue to follow. By: 0815 [id number] Rosi De La Garza MD /nt
--- NOTE | ~2020-05-24 | H ---
[facility] [place] [address] HISTORY AND PHYSICAL Name: TOBY LOYOLA Room #: 503-P ADM IN M.R.#: [id number] Admission: 05/25/20 Attend Phys: Redd Zuniga MD Discharge: Date of : 33 Report #: [id number] THIS REPORT FOR: cc: Parveen Goldberg MD,Parveen Zuniga,Redd Su MD ~ CC: Redd Goldberg DATE OF SERVICE: 05/25/2020 HISTORY AND PHYSICAL/POST ADMISSION PHYSICIAN EVALUATION HISTORY OF PRESENT ILLNESS: The patient is an 84-year-old white male originally admitted to [facility] on 05/16/2020 with a prior history of dementia, living in a memory custodial, who was noted to have a mental status change. He did not recognize his daughter, which is a significant change. He had worsening shortness of breath, congestive heart failure acute on chronic with sepsis, community-acquired pneumonia. He also had a large right pleural effusion and underwent thoracentesis on 05/17/2020 with 2200 mL fluid drained. He was noted to have a significant encephalopathy with worsening of his mental status, he was restless and trying to get out of bed, was in restraints for a period of time until those were removed on 05/23/2020. He also has dysphagia with aspiration risk and the daughter who is closely involved with plans to have him utilize a pureed diet with nectar thickened liquids. Speech therapy has been involved. He was noted to have a significant decline from his premorbid status and has now been admitted for acute in-hospital inpatient rehabilitation. PAST MEDICAL HISTORY: Prior medical history includes gastric CA, coronary artery disease, status post stenting. He had a prior cardioversion. History of diabetes mellitus type 2. He does have the prior dementia, but was active gardening, raking leaves, living in his memory custodial and did not utilize gait aids. HABITS: No history of tobacco or alcohol abuse. MEDICATIONS: Please see the full medication listing. ALLERGIES: CAMPHOR, IODINE, PENICILLIN AND PREDNISONE. SOCIAL HISTORY: As noted above, he is in a small memory custodial, which I believe 7 or 8 other residents. There apparently is a nurse and aid there and they are served meals to family style. He had premorbidly been ambulatory without aids and was active, doing outside activity is as noted above. He has a closely involved daughter. [address] [address] HISTORY AND PHYSICAL Name: TOBY LOYOLA Room #: 503-P [facility] IN M.R.#: [id number] Admission: 05/25/20 Attend Phys: Redd Zuniga MD Discharge: Date of : 33 Report #: [id number] REVIEW OF SYSTEMS: He did not offer any complaints of chest pain, shortness of breath, or abdominal discomfort. He is hard of hearing. He did not complain of any specific pain. He tried to make some jokes during the review of systems. No specific skin issues, HEENT or extremity complaints. No note of any bowel or bladder complaints or issues. I am uncertain if he understood my questions in this regard. He is hard of hearing and has hearing aids. PHYSICAL EXAMINATION: GENERAL: The patient was seen yesterday 05/25/2020. This is an 84-year-old white male in no obvious distress. He was alert, pleasant. Definite latency to his responses, hard of hearing, will follow basic 1 step commands. VITAL SIGNS: Last recorded temperature 97.8, pulse 99, respirations 18, and blood pressure 114/71. HEENT: Appeared to be benign, although he has his hearing aids in. CHEST: Sounded clear to auscultation. CARDIOVASCULAR: Regular rate and rhythm. ABDOMEN: Bowel sounds positive, nontender. He is of rather slender build. GENITOURINARY AND RECTAL: Deferred. EXTREMITIES: He has functional range of motion of the upper extremities with some decrease at end range. Strength is a grade 4-/5. Lower extremities functional range of motion, strength is probably a grade 4-/5. ASSESSMENT: An 84-year-old white male with the following problem list: 1. Toxic metabolic encephalopathy. 2. Sepsis. 3. Congestive heart failure, acute on chronic, systolic. 4. Large right pleural effusion, status post thoracentesis. 5. Community-acquired pneumonia. 6. Premorbid history of dementia, nevertheless living in the community and actively engaged around the household premorbidly. 7. Aspiration with dysphagia. He is on a pureed diet with nectar thickened liquids. 8. Do Not Resuscitate status. PLAN: The patient has been admitted for acute in-hospital inpatient rehabilitation. His restraints had been removed a couple of days prior. He was felt to be ready for an acute in-hospital inpatient rehabilitation stay. I had a discussion with the daughter and we have placed in right across from the nurse's station for close observation. From a postadmission physician evaluation perspective, there are no relevant changes since the preadmission screening. Please see the above review of prior and current medical and functional conditions and comorbidities. Please see the patient's previous and current functional status. As far as risk of complications, the patient has multiple medical comorbidities as noted above. Initial plan of care involves the interdisciplinary acute inpatient rehabilitation program. Measurable functional goals would be for the patient to become modified independent with [address] [place] [address] HISTORY AND PHYSICAL Name: TOBY LOYOLA Room #: 503-P ADM IN M.R.#: [id number] Admission: 05/25/20 Attend Phys: Redd Zuniga MD Discharge: Date of : 33 Report #: [id number] transfers, mobility, ADLs and to improve as far as cognition and to at least reach the level that he was at before with his premorbid dementia. Hopefully, we can improve his diet as well as he is on the aspiration precautions with the thickened liquids as noted. His prognosis is reasonably good with estimated length of stay probably at least 7-14 days. Potential barriers would include his multiple medical comorbidities and decreased functional status. The patient meets diagnostic criteria for an acute in-hospital inpatient rehabilitation stay. He meets the medical necessity criteria. He does have the tolerance for therapies and has appropriate discharge goals back to the home setting. By: 0831 [id number] Redd Zuniga MD /nt
--- NOTE | ~2020-05-24 | HC ---
[facility] [place] [address] CONSULTATION Name: TOBY LOYOLA Room #: 503-P [facility] IN M.R.#: [id number] Admission: 05/25/20 Attend Phys: Redd Zuniga MD Discharge: Date of : 33 Report #: [id number] THIS REPORT FOR: cc: Parveen Goldberg MD, Neal A. MD Deutch,Parveen Olivo. PhD ~ CC: Redd Goldberg DATE OF SERVICE: 05/28/2020 NEUROBEHAVIORAL STATUS EXAM ATTENDING PHYSICIAN: Redd Zuniga MD COB SAWYER: Parveen Cordova, PhD CLINICAL PRESENTATION: The patient is an 84-year-old male, initially admitted to [facility] on 05/16/2020 from a memory care. The patient was presenting with mental status changes as well as symptoms that included worsening shortness of breath; congestive heart failure, vwpmf-gw-napeyhu with sepsis; and community-acquired pneumonia. The patient had a large right pleural effusion and underwent a thoracentesis. He was restless and agitated initially, and required restraints. They were removed on 05/23/2020. The patient has dysphagia and has an aspiration risk. His assessment on admission to the rehab unit is toxic metabolic encephalopathy; sepsis; congestive heart failure, cnhta-rv-[id number], systolic; large right pleural effusion, status post thoracentesis; community-acquired pneumonia; premorbid history of dementia, living in the community and engaged in supervised household tasks; aspiration with dysphagia and he is a DO NOT RESUSCITATE status. A complete summary of his medical condition, history, and medications can be found in his medical record. Neuropsychological consultation was requested to provide assistance in the assessment of cognitive and emotional status and to provide recommendations and services. Prior to this most recent admission as indicated, the patient was living in an assisted living memory care unit. He was diagnosed with dementia about 5 years ago. However, his daughter indicates that cognitive deficits had been identified for several years prior to that official diagnosis. There was no history of treatment for alcohol or drug abuse. There is also no history of treatment for anxiety or depression. The patient's second in 09/2019. His first from suicide after killing her son, she was approximately aged 37. He has one surviving child, who is his daughter, Ada. [address] [address] CONSULTATION Name: TOBY LOYOLA Room #: 503-P [facility] IN M.R.#: [id number] Admission: 05/25/20 Attend Phys: Redd Zuniga MD Discharge: Date of : 33 Report #: [id number] It was Ada's mother that killed the boy and herself. The patient had 14 siblings. 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 He is a high school graduate and . TECHNIQUES UTILIZED: Clinical interview, review of medical records, staff consultation and behavioral observation, mini mental status exam-2 brief version, and family interview -- daughter. EXAMINATION FINDINGS: The patient was alert and cooperative with the assessment. He is severely hard of hearing. The patient presented with disorientation and intermittent confusion during the assessment. His daughter also indicates his current level of disorientation is higher at this time. Disorientation associated with Alzheimer disease along with being in an unfamiliar environment is likely contributing to intermittent irritability and agitation. His performance on the MMSE-2 brief version was 1 of 16, which is extremely low. His comprehension appeared adequate for brief and simple statements when he is able to hear them. Naming was satisfactory. The patient was unable to copy a simple geometric design. The judgment appears to be fairly stable. He needs frequent orientation to place and his current location. His overall level of dementia suggests a moderate degree of severity with intermittent confusion and disorientation. 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 RECOMMENDATIONS: The patient will likely do better when he is in a more familiar environment. He has only been in the assisted living memory care since September of this year; however, return to that environment will likely result in a somewhat improved level of adjustment. He will continue to require assistance with basic and instrumental activities of daily living. Frequent reassurance will also be helpful. Thank you very much for allowing me to provide the consultation on this patient. By: [id number] Parveen Cordova, PhD /nt
[~2020-05-24 15:53] MED LIST changes: +CARDIZEM60 MG PO; +DEMADEX20 MG PO; +METOPROLOL TART25 MG PO; +POTASSIUM CHLO20 MEQ PO
--- NOTE | 2020-05-25 11:23 | NUR ---
chart review. received cm consult. pt will come up to acute rehab today from [facility]. he lives in home at [facility]. he was able to walk with out assist prior to hospital, he has medication assistance and meals in the home. [facility] he uses brief at bedtime. he was able to work in garden if he wanted at home in back yard. no stair. 8 resident that live there. daughter jerald lives in area and supportive. will cont following as needed for dc needs. noted per note [facility] if needed at dc.
[2020-05-25 13:15] VITALS: BP 87/48
--- NOTE | 2020-05-25 18:50 | NUR ---
ASSUMED CARE OF PT AT 1300 WHEN PT BROUGHT TO UNIT BY PRIOR UNIT NURSING STAFF. RECEIVED REPORT FROM JAIDA PRIOR TO TRANSFER. PT IS DISORIENTED X4. MAKES FREQUENT ATTEMPTS TO HIT STAFF. PT ON ASPIRATION PRECAUTIONS AND CANNOT HAVE FOOD OR DRINK LEFT AT THE BEDSIDE. PT OPENED PREVAIL CUP AND BEGAN TO DRINK FROM THE CUP THIS EVENING. AT DINNER PT BEGAN TO GET AGITATED AND ATTEMPTED TO PUNCH AND KICK STAFF BEFORE THROWING FOOD AT NURSE. NOTIFIED GASOLINE TESTER, ONE TIME ORDER FOR BRIAN, DON ORDERD, AND CONSULT FOR DR AHMADI. PT IN RECLINER AT NURSES STATION. ADMISSION HX AND ASSESSMENT COMPLETED. CONSULTS CALLED. UNABLE TO SIGN CONSENTS. NOTIFIED DR PERKINS ABOUT INCOMPLETE MEDICAITON LIST ON DISCHARGE FROM ACUTE. NO RESPONSE AT THIS TIME. ACCU CHECKS [facility]CHS. FALL PRECAUTIONS IN PLACE AND NURSING WILL CONTINUE TO MONITOR.
[2020-05-25 18:57] VITALS: BP 94/60
--- NOTE | 2020-05-26 03:50 | NUR ---
Patient is alert buut completely disoriented. He is assigned a sitter at all times because he is restless, would not stay on one spot and could become combative sometimes. All his vitals including blood sugar was withing normal ranges or his regular baseline range. MECHANICAL ENGINEERING LECTURER was called and notified about patient's increased restlessness and she prescribed Olanzepine, which was administered. Patient was less agitated but still wide awake throughoutthe night.
[2020-05-26 05:53] LABS: HEMATOCRIT 30.1 % (42.0-52.0); HEMOGLOBIN 8.7 gm/dL (14.0-18.0); MCH 21.4 pg (26.0-34.0); MCHC 28.9 g/dL (28.0-37.0); RBC 4.07 mil/uL (4.50-6.00); RDW 20.3 % (10.5-14.5)
[2020-05-26 06:16] LABS: CALCIUM 9.1 mg/dL (8.5-10.1); CREATININE 1.4 mg/dL (0.7-1.3)
[2020-05-26 06:32] LABS: POTASSIUM 2.8 mmol/L (3.5-5.1)
--- NOTE | 2020-05-26 06:37 | NUR ---
lAB CALLED AND INFORMED OF CRITICAL k OF 2.8 CALLED JASON GRIMES AND SHE GAVE ORDER FOR 40MEQ OF KCL PO X 1
[2020-05-26 08:00] VITALS: BP 109/62
[2020-05-26 11:21] LABS: TSH 0.86 uIU/mL (0.358-3.740)
--- NOTE | 2020-05-26 13:30 | NUR ---
ASSUMED CARES AT 0700.PT IN THE DINING AREA IN HIS RECLINER WEARING ONLY A DEPEND, PT PULLING CLOTHES AND COVERS AWARE. CONFUSED, DISORIENTED,RESTLESS AND RESTLESS. SITTER AT THE BEDSIDE. HR ELEVATED THIS AM,ALL OTHER VITALS STABLE. ASPIRATION PRECAUTIONS MAINTAINED. POTASSIUM LAB LOW TODAY,IV KCL ADMINISTERED ORDERED. IV STARTED ON RIGHT FOREARM. CONTINUES TO HAVE BRUISING ON ARMS, NO OPEN SKIN. PT UP WITH 1 MIN ASSIST,GB AND WALKER & TOLERATED WELL. SITTER REMAINS AT THE BEDSIDE, HOURLY ROUNDING, FALL PRECAUTIONS IN PLACE. CALL LIGHT WITHIN REACH
[2020-05-26 14:31] VITALS: BP 98/42
[2020-05-26 22:08] VITALS: BP 107/65
--- NOTE | 2020-05-27 03:25 | NUR ---
Patient is alert but disoriented. He has an IV dextrose running through the night. He has been more settled this night compared to last night. He started the shift having a 1:1 sitter, but in the course of the night, sitter was reassigned by supervisor framing mill for staffing needs. Since the only other CREATIVE ARTS THERAPIST on the floor could not be pulled and used for a 1:1, PAINT TESTER corrections cadet and infantry unit leader (Lisha) were notified of the changes and possible stoppage or breaks in 1:1. Patient was compliant with his bedtime medications.
[2020-05-27 06:57] VITALS: BP 108/73
[2020-05-27 07:41] LABS: ALBUMIN 2.7 g/dL (3.4-5.0); CALCIUM 8.4 mg/dL (8.5-10.1); CREATININE 1.2 mg/dL (0.7-1.3); PHOSPHORUS 3.2 mg/dL (2.5-4.9); POTASSIUM 3.1 mmol/L (3.5-5.1)
--- NOTE | 2020-05-27 13:42 | NUR ---
ASSUMED CARES AT 0700. PT IN THE CHAIR AWAKE, DISORIENTED AND IMPULSIVE, RESTLESS, SITTER AT THE BEDSIDE. VITALS REMAIN STABLE. DENIES PAIN. IV ON RIGHT FOREARM REMAINS INTACT AND PATENT, D5W INFUSING AT 200ML/HR. ASPIRATION PRECAUTIONS MAINTAINED, PT REMAINS ON PUREE DIET AND NECTAR THICK FLUIDS. UP TO THE BATHROOM MULTIPLE TIMES. TOOK A NAP IN BED THIS AFTERNOON. FALL PRECAUTIONS IN PLACE, HOURLY ROUNDING, CALL LIGHT WITHIN REACH.
[2020-05-27 14:05] VITALS: BP 104/67
[2020-05-27 18:55] VITALS: BP 91/54
--- NOTE | 2020-05-28 00:01 | NUR ---
PT ALERT AND ORIENTED X 1, CONFUSED. IV INFUSING ORDERED. UP TO BR WITH ASSIST X 1. PT TAKES MEDS CRUSHED IN APPLESAUCE WITHOUT DIFFICULTY. PT DENIES PAIN OR DISCOMFORT. HAS BEEN RESTLESS AT TIMES, TUGGING AT DRESSING AROUND IV SITE. SITTER WITH PT AT ALL TIMES. BED ALARM ON FOR SAFETY.
[2020-05-28 05:27] LABS: ALBUMIN 2.4 g/dL (3.4-5.0); MAGNESIUM 2.2 mg/dL (1.8-2.4); PHOSPHORUS 2.3 mg/dL (2.5-4.9)
[2020-05-28 05:29] LABS: POTASSIUM 2.8 mmol/L (3.5-5.1)
[2020-05-28 05:30] VITALS: BP 101/74
[2020-05-28 08:05] VITALS: BP 85/51; BP 88/55
[2020-05-28 09:25] VITALS: BP 88/52
[2020-05-28 14:20] VITALS: BP 94/55
[2020-05-28 19:30] VITALS: BP 104/30
--- NOTE | 2020-05-29 00:59 | NUR ---
PT ALERT, CONFUSED. AMB TO BR WITH ASSIST X 1. PT PULLED IV OUT TONIGHT. RESTARTED BY NURSING VASCULAR PHYSICIAN. FLUIDS INFUSING ORDERED. BLOOD SUGAR 49 AT HS. APPLE JUICE GIVEN AND BLOOD SUGAR UP TO 60. SYDNEY ANDRADE NP NOTIFIED WITH ORDERS RECEIVED. SUBQ GLUCAGON GIVEN AT 2200 AND BLOOD SUGAR 107 AT 2225. BP 104/30 AT HS. METOPROLOL HELD. PT DENIES PAIN OR DISCOMFORT. BED ALARM ON FOR SAFETY. SITTER WITH PT AT ALL TIMES. PT SLEEPING AT INTERVALS. IS IMPULSIVE AT TIMES.
[2020-05-29 04:22] LABS: ALBUMIN 2.4 g/dL (3.4-5.0); CALCIUM 7.8 mg/dL (8.5-10.1); CREATININE 0.9 mg/dL (0.7-1.3); PHOSPHORUS 2.7 mg/dL (2.5-4.9)
[2020-05-29 07:18] VITALS: BP 96/58
[2020-05-29 07:38] VITALS: BP 96/58
--- NOTE | 2020-05-29 07:47 | NUR ---
ASSUMED CARE AT 0700. PAITIENT ALERT TO SELF ONLY, VERY SLEEPY, IN BED WITH SITTER AT BEDSIDE. LUNGS ARE CLEAR AND DEMINISHED. ABD IS SOFT WITH BSX4. PATIENT HAD BM TODAY. PATIENT IS INCONTINENT OF URINE AT AT TIMES. PATIENT HAS IV INFUSING IN HIS LEFT FORARM AT 100CC/HR. BP 96/58. BS 73. PATIENT IS RESITNG QUIETLY IN BED. FALL AND SAFETY PROTOCOLS IN PLACE. DENIES PAIN AT THIS TIME. WILL CONTINUE TO MONITER.
[2020-05-29 19:26] VITALS: BP 122/71
--- NOTE | 2020-05-30 02:02 | NUR ---
PT CARE ASSUMED AT 1945 WITH PT IN CHAIR AND 1:1 SITTER IN ROOM BY PATIENT BEDSIDE.PT IS ALERT TO SELF AND VERY CONFUSED.PT IS UP TO BEDSIDE COMMODE WITH X1 ASSIST WITH GAIT BELT AND WALKER.PT IS ACCUCHECK ACHS.PT IS [place] ON HEARING AIDS.PT IS ON A PUREED DIET AND NECTAR THICKEN LIQUIDS.MEDICATIONS GIVEN CRUSHED IN APPLE SAUCE.PT APPEARED TO BE IN NO DISTRESS AND PAIN TILL THIS POINT.WILL CONTINUE TO MONITOR
[2020-05-30 05:30] VITALS: BP 107/70
[2020-05-30 06:34] LABS: CALCIUM 8.2 mg/dL (8.5-10.1); CREATININE 0.7 mg/dL (0.7-1.3); POTASSIUM 3.7 mmol/L (3.5-5.1)
[2020-05-30 07:00] VITALS: BP 121/71
--- NOTE | 2020-05-30 08:40 | NUR ---
ASSUMED CARE AT 0700. PT SLEPT WELL. PT HAD SEVERAL LOOSE STOOL THIS AM. DENIES ANY PAIN. UP WITH ASSIST TO THE BATHROOM. PT IS COOPERATIVE AND PLEASANT. BS WAS 79. NO COMPLAINS OF NAUSEA OR LIGHTHEADEDNESS. PT ATE ALMOST 50% OF HIS BREAKFAST TODAY. PARTICIPATING WITH THERAPY. HAS A SITTER AND ON 1:1. WILL CONT TO MONITOR.
[2020-05-30 15:18] LABS: URINE BILIRUBIN NEGATIVE (Negative); URINE BLOOD NEGATIVE (Negative); URINE CLARITY CLEAR; URINE COLOR YELLOW; URINE GLUCOSE-RANDOM* NEGATIVE (Negative); URINE KETONES NEGATIVE (Negative); URINE LEUKOCYTES NEGATIVE (Negative); URINE NITRITE NEGATIVE (Negative); URINE PROTEIN (DIPSTICK) NEGATIVE (Negative)
[2020-05-30 19:00] VITALS: BP 113/62
--- NOTE | 2020-05-31 00:06 | NUR ---
PT ALERT AND ORIENTED X 1, CONFUSED. RESTLESS AND AGITATED AT TIMES. TRYING TO GO TO BR TO DRINK WATER FROM [employer]. AMB TO BR WITH ASSIST X 1. PT TAKES MEDS CRUSHED IN APPLESAUCE WITHOUT DIFFICULTY. BLOOD SUGAR 92 AT HS. PT DENIES PAIN OR DISCOMFORT. BED ALARM ON FOR SAFETY. SITTER WITH PT AT ALL TIMES.
[2020-05-31 07:10] VITALS: BP 114/62
--- NOTE | 2020-05-31 09:31 | NUR ---
ASSUMED CARE AT 0700. PATIENT IS VERY CONFUSED. TRYING TO CLIMB OUT OF BED. PATIENT IS 1:1. LUNGS ARE CLEAR AND DEMINISHED. ABD IS SOFT WITH BSX4. PATIENT HAS S.L. IN HIS LEFT F.A. UP TO THE BATHROOM WITH ASSIST OF 1 TO VOID ELISA COLORED URINE. UP IN THE CHAIR FOR BREAKFAST WITH S.T. FALL AND SAFETY PROTOCOLS IN PLACE. DENIES PAIN AT THIS TIME. CONTINUES TO PROGRESS SLOWLY TOWARDS D/C GOALS. WILL CONTINUE TO MONITER.
--- NOTE | 2020-05-31 13:43 | NUR ---
team meeting, reccommendation: cont to have sitter. dc 9th back to his home sitting, diet puree with nectar thick liquid with spoon. repeat vidoe swallow prior to dc. cant follow direction, and he is also [place].
[2020-05-31 20:22] VITALS: BP 97/74
--- NOTE | 2020-05-31 23:38 | NUR ---
SITTER WITH PATIENT NEEDED TO REDIRECT PATIENT GETTING UP, NEEDS GUIDANCE TO PREVENT FALLING. NOT GRASPING WALKER EVEN WHEN DIRECTED TO USE IT IN THE PROCESS OF GETTING FROM BED TO CHAIR. HE ALSO NEEDS 100% SUPERVISION DRINKING SIPS OF NECTAR THICK LIQUIDS, ONLY COUGHED ONCE WITH MEDS, WATER, APPLESAUCE WHILE SITTING IN CHAIR
--- NOTE | 2020-06-01 03:00 | NUR ---
RESTLESSLY MOVING FROM CHAIR TO BED TO CHAIR, HALDOL GIVEN AT 0200, STAYING IN BED MORE OFTEN SINCE THEN. ONE LOOSE BM PARTLY IN ATTENDS AND PARTLY IN TOILET AFTER WALKING WITH MOD ASSIST, DECLINED WALKER GOING TO BATHROOM, BUT NOT ON THE WAY BACK TO BED.
[2020-06-01 05:09] VITALS: BP 112/59
[2020-06-01 06:24] LABS: ABSOLUTE NEUTROPHILS 5.2 thou/uL (1.4-8.2); BASOPHILS 0.5 % (0.0-2.0); EOSINOPHILS 3.2 % (0.0-3.0); HEMATOCRIT 27.3 % (42.0-52.0); HEMOGLOBIN 8.2 gm/dL (14.0-18.0); LYMPHOCYTES 13.2 % (24.0-44.0); MCH 22.6 pg (26.0-34.0); MCV 75.1 fL (80.0-100.0); MONOCYTES 7.1 % (1.0-8.0); PLATELET COUNT 199 thou/uL (150-400); RBC 3.63 mil/uL (4.50-6.00); RDW 20.5 % (10.5-14.5); WBC 6.8 thou/uL (4.0-11.0)
[2020-06-01 06:37] LABS: CALCIUM 8.1 mg/dL (8.5-10.1); CREATININE 0.8 mg/dL (0.7-1.3); POTASSIUM 3.8 mmol/L (3.5-5.1)
[2020-06-01 07:00] VITALS: BP 132/79
--- NOTE | 2020-06-01 09:13 | NUR ---
ASSUMED CARE AT 0700. PATIENT IS ALERT TO PERSON ONLY, CONFUSED. 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 PATIENT IS VERY [place] AND WEARS HEARING AIDS. LUNGS ARE CLEAR AND DEMINISHYED. ABD IS SOFT WITH BSX4. PATIENT IS 1:1 WITH SITTER. WILL NOT FOLLOW DIRECTIONS OR REDIRECTION. PLAN D/C TO NURSING HOME ON SATURDAY. UP IN THE CHAIR FOR BREAKFAST WITH S.T. FALL AND SAFETY PROTOCOLS IN PLACE. DENIES PAIN. CONTINUES TO PROGRESS SLOWLY TOWARDS D/C GOALS. WILL CONTINUE TO MONITER BEHAVIORS AND TREAT NEEDED.
--- NOTE | 2020-06-01 15:02 | NUR ---
I have reviewed the documentation by DAVID BHANDARI from 06/01/20 to 06/01/20 and I concur with it. TG SINGH, PT, DPT
--- NOTE | 2020-06-01 15:49 | NUR ---
[facility] will deliver the fww prior to dc on the . vendor choice form on his chart.
--- NOTE | 2020-06-01 16:29 | NUR ---
PT RESID[place] AT [facility] [place] RECEIVED CONFIRMATION AND SPOKE WITH ALTHEA IN INTAKE SHE RECEIVED UPDATE.
[2020-06-01 20:15] VITALS: BP 115/74
--- NOTE | 2020-06-02 01:32 | NUR ---
PATIENT STANDING UP IMPULSIVELY ONCE TO BATHROOM AND MULTIPLE TIMES TO SIT IN CHAIR, REFUSING HELP OR WALKER. INCONTINENT TIMES ONE, BRIEF CHANGED. TOLERATING MEDS WITH APPLESAUCE AND NECTAR THICK LIQUIDS WHILE UP 90 DEGREES, NO COUGHING NOTICED TONIGHT. SITTER AT BEDSIDE FOR PATIENT SAFETY.
[2020-06-02 09:00] VITALS: BP 122/68
--- NOTE | 2020-06-02 10:08 | NUR ---
ASSUMED CARE AT 0700. PER REPORT PT WAS IMPULSIVE AND HITTING AND FIGHTING WITH STAFF A COUPLE OF DAYS AGO. NONE REPORTED LAST NIGHT. PT IS APPROPRIATE THIS MORNING AND FOLLOW SIMPLE INSTRUCTIONS. WENT FOR A SWALLOW STUDY AND NO CHANGES IN HIS DIET. SITTER AT BEDSIDE. POSSIBLE PLAN FOR DC TO [facility] TOMORROW. COVID TESTING NEGATIVE. BP STABLE AND METOPROLOL GIVEN ORDERED.
--- NOTE | 2020-06-02 10:27 | NUR ---
cm called sara at the sr home to see if he can get h[facility] st for vital stim when dc home tomorrow with fww from [facility]. cm left message requesting a return call back. will cont following as needed for dc needs.
--- NOTE | 2020-06-02 16:11 | NUR ---
I have reviewed the documentation by DAVID BHANDARI from 06/02/20 to 06/02/20 and I concur with it. TG SINGH, PT, DPT
[2020-06-02 21:15] VITALS: BP 131/89
--- NOTE | 2020-06-03 03:55 | NUR ---
PATIENT IS A/0 X 1. HE IS [place]. HE IS ON NECTAR THICK LIQUIDS AND TOOK HIS MEDS CRUSHED IN APPLESAUCE. PATIENT IS ASSIST X 1 ON TRANSFERS. PATIENT HAS HAD PERIODS OF COMBATIVENESS. HE HAS TAKEN AND HIT STAFF WITH HIS PILLOW OR KICKED OR SWUNG AT STAFF. HE IS IMPULSIVE AND AT TIMES TRIES TO CLIMB OVER BED RAILS. PATIENT HAS 1:1 SITTER AT ALL TIMES. PATIENT'S HS ACCUCHECK WAS 82. HE IS NOT ON INSULIN. PATIENT GIVEN HALDOL 2MG IM AT 0130 AFTER BECOMING AGITATED AND PULLING OFF HIS JAN WRAP AROUND IV AND THEN PULLING OUT HIS IV ACCESS IN LEFT FA. AREA WAS CLEANED AND NEW BANDAID PLACE OVER AREA AND PATIENT REMOVED IT. PATIENT DID CALM AND FALL ASLEEP FOR AN HOUR AFTER THE HALDOL BUT THEN BECAME MORE COMBATIVE AND WAS SWINGING AT STAFF AND TRYING TO GET OUT OF BED. RISPERIDONE 1MG PO AND TYLENOL 2MG PO GIVEN AROUND 0300. PATIENT HAS NOT CALMED OF YET. PATIENT TRYING TO GET OOB. WILL CONTINUE TO MONITOR.
[2020-06-03] MEDS ORDERED: METOPROLOL TART25 MG PO (08:05)
[2020-06-03] MEDS ORDERED: TYLENOL325 MG PO (08:05)
[2020-06-03] MEDS ORDERED: DEPAKOTE SPRIN125 MG PO (08:05)
[2020-06-03] MEDS ORDERED: CARDIZEM30 MG PO (08:05)
[2020-06-03] MEDS ORDERED: RISPERIDONE 00.25 MG PO (08:05)
[2020-06-03] MEDS ORDERED: MIRALAX17 GM PO (08:05)
[2020-06-03] MEDS ORDERED: DEMADEX20 MG PO (08:05)
--- NOTE | 2020-06-03 10:10 | NUR ---
[facility] with vital stim for [facility] therapy. daughter kat will be here to get him about 1100 to take him to his sr home. [facility] delivered his fww already today. will cont following as needed for dc needs.
[2020-06-03 10:15] VITALS: BP 109/73
--- NOTE | 2020-06-03 10:47 | NUR ---
ASSUMED CARE AT 0700. PT HAD A RESTLESS NIGHT AND WAS UP THE WHOLE NIGHT AND WAS IMPULSIVE. HE WAS MEDICATED WITH PO HALDOL AND RISPERDAL LAST NIGHT. THIS MORNING HE WAS STILL IMPULSIVE BUT TOOK ALL HIS AM MEDS. PT REFUSED TO EAT AND WANTED TO LIE DOWN TO SLEEP. DR AHMADI AWARE OF SITUATION AND IS OK WITH DISCHARGE PT WILL BE GOING TO A FAMILIAR SETTING AND MIGHT HELP WITH HIS BEHAVIOUR. DAUGHTER WILL BE COMING AROUND 1130 TO PICK PT FOR DISCHARGE TODAY TO INTERMEDIATE ROOM WITH HOME HEALTH.
[2020-06-03 10:58] VITALS: BP 109/73
--- NOTE | 2020-06-03 12:15 | NUR ---
FAXED DC ORDERS/SUYMMARY TO [facility] SPOKE WITH BOLA IN INTAKE SHE RECEIVED ORDERS AND WILL CALL PT TO ARRANGE VISITS.
== END 2020-06-03 11:50 | disposition home health service (06) | DRG 91 ==
PROVIDERS: Hospitalist; Internal Medicine Nephrology; Nurse Practitioner; Psychiatry & Neurology Psychiatry; ADMIT Physical Medicine & Rehabilitation; ATTEND Physical Medicine & Rehabilitation
DX: G92 Toxic encephalopathy (principal); I50.23 Acute on chronic systolic (congestive) heart failure; A41.9 Sepsis, unspecified organism; J18.9 Pneumonia, unspecified organism; E87.0 Hyperosmolality and hypernatremia; I25.10 Atherosclerotic heart disease of native coronary artery without angina pectoris; F03.90 Unspecified dementia, unspecified severity, without behavioral disturbance, psychotic disturbance, mood disturbance, and anxiety; I48.91 Unspecified atrial fibrillation; Z88.0 Allergy status to penicillin; E87.6 Hypokalemia; E86.0 Dehydration; R53.81 Other malaise
CPT/HCPCS: 10112